=== PATIENT | male | born 1990 | race Caucasian/White ===

== ENCOUNTER 2017-02-19 15:59 | Emergency (ER) | payer OTHER ==
[~2017-02-19] VITALS: Ht 170.2 cm; Wt 61.2 kg
[2017-02-19 16:23] VITALS: BP 124/72
--- NOTE | 2017-02-19 18:57 | ED.ADGEN ---
Past History Past Medical History: No Pertinent History Past Surgical History: No Surgical History Alcohol Use: Rarely Drug Use: None Adult General HPI HPI Patient is a 26-year-old man, who presents to the emergency department with complaint of rash. Patient states that he first noted some small bumps on the inner aspect of his left foot about one week ago. He states that he scratched at the area, does not recall any exposures or contacts. He states that about 5 days later he noted similar lesions on the medial aspect of his left hand, and then also some "splotching", of his bilateral palms, he states that he did scratch at his hand without thinking, and noted a small amount of drainage. Patient states that his hands felt like they were "burning". Patient states he experienced a small irritation on the outer aspect of his left eye that occurred yesterday, and then today began developing some itching on a small portion on the lateral aspect of his left back. Patient denies any fevers, chills, nausea or vomiting, any difficulty breathing or swallowing, any involvement of the tongue or lips, any vision changes, any lesions on the palms or soles of his feet. No peeling of the skin. Denies any ingestions or exposures , any new contacts or causes. 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 He has an appointment with his primary care provider on Wednesday. Patient states that he used a cream on his hands and feet without relief. Review of Systems Review of Systems Constitutional: Denies fever or chills [] Eyes: Denies change in visual acuity, redness, or eye pain [] HENT: Denies nasal congestion or sore throat [] Respiratory: Denies cough or shortness of breath [] Cardiovascular: No additional information not addressed in HPI [] GI: Denies abdominal pain, nausea, vomiting, bloody stools or diarrhea [] : Denies dysuria or hematuria [] Musculoskeletal: Denies back pain or joint pain [] Integument: Rash as stated. Neurologic: Denies headache, focal weakness or sensory changes [] Endocrine: Denies polyuria or polydipsia [] Allergies Allergies Allergies Coded Allergies Type Severity Reaction Last Updated Verified Penicillins Allergy Unknown 02/19/17 Yes Physical Exam Physical Exam Constitutional: Well developed, well nourished, no acute distress, non-toxic appearance. [] HENT: Normocephalic, atraumatic, bilateral external ears normal, oropharynx moist, no oral exudates, nose normal. [] Eyes: PERRLA, EOMI, conjunctiva normal, no discharge. [] Neck: Normal range of motion, no tenderness, supple, no stridor. [] Cardiovascular:Heart rate regular rhythm, no murmur, S1, S2, rubs or gallops [] Lungs & Thorax: Bilateral breath sounds clear to auscultation, no wheezing, rhonchi, rales. No chest or crepitus or tenderness. [] Abdomen: Bowel sounds normal, soft, no tenderness, no rebound, rigidity, no guarding, no masses, no pulsatile masses. [] Skin: Warm, dry, no erythema, patient noted to have 4 small red bumps on the inner aspect of his left ankle, over the medial malleolus, there is no surrounding erythema or induration, no evidence of vesicular lesions, and patient states that these have remained unchanged since there initiated appearance, on the hyperthenar eminence, patient noted to have healing small excoriation, without any drainage discharge or evidence of infection, several small lesions noted here stated, patient noted to have a line of about 4 small red raised bumps along the left lateral aspect of his back, no abnormality identified on the face, in the mouth, involving mucosa, tongue, lips, eyes, abdomen, no lymphadenopathy, and no other abnormalities identified. Back: No tenderness, no CVA tenderness. [] Extremities: No tenderness, no cyanosis, no clubbing, ROM intact, no edema. Negative Homans sign. [] Neurologic: Alert and oriented X 3, normal motor function, normal sensory function, no focal deficits noted. [] Psychologic: Affect normal, judgement normal, mood normal. [] Current Patient Data Vital Signs Vital Signs Date Time Temp Pulse Resp B/P (MAP) Pulse Ox O2 Delivery O2 Flow Rate FiO2 02/19/17 16:23 98.3 71 12 96 Room Air EKG EKG Not indicated. [] Radiology/Procedures Radiology/Procedures Not indicated. [] Course & Med Decision Making Course & Med Decision Making Pertinent Labs and Imaging studies reviewed. (See chart for details) Patient well-appearing, with no evidence of systemic symptoms, vital sign within s normal limits. Patient has very small areas of raised red bumps located on left ankle, left hand, and left back, consistent with contact dermatitis, no vesicular lesions, no tracking patterns, no evidence of infection or induration, no evidence of injury or foreign body. Discussed with patient that although he is experiencing itching at these sites, he is not exhibiting any dangerous symptoms, such as involvement of palms and soles, peeling of the skin, involvement of eyes, mouth, lips and tongue, fevers, bruising. Discussed use of Benadryl, oatmeal bath, and topical treatment such as Eucerin cream for comfort. Encouraged patient to follow-up with primary care provider on Wednesday if symptoms persist. Encouraged palpation use gloves when he is in contact with individuals in the course of his employment if there are any concerns for possible spread, as I cannot identify a source for this rash. Patient instructed to return to the ED any time if any concerning symptoms that we discussed do develop. 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 Discharged home in stable condition with plan as above. Final Impression Final Impression [] Problems: Dragon Disclaimer Dragon Disclaimer This electronic medical record was generated, in whole or in part, using a voice recognition dictation system. Departure: Impression: Primary Impression: Rash and nonspecific skin eruption Disposition: 01 HOME, SELF-CARE Condition: STABLE ANGELICA PABON DO Feb 19, 2017 18:57
== END 2017-02-19 16:50 | disposition home or self-care (01) ==
LOC: ER 15:59
DX: R21 Rash and other nonspecific skin eruption (principal); H57.8 Other specified disorders of eye and adnexa; Z88.0 Allergy status to penicillin
CPT/HCPCS: 99281